=== PATIENT | female | born 1970 ===

== ENCOUNTER 2018-08-12 09:21 | Outpatient (CLI) | payer SELFPAY | END 2018-08-12 09:22 | disposition home or self-care (01) | LOC: C.LAB 09:21 | DX: E11.9 Type 2 diabetes mellitus without complications (principal) ==

== ENCOUNTER 2018-11-11 09:51 | Outpatient (CLI) | payer SELFPAY | END 2018-11-11 09:52 | disposition home or self-care (01) | LOC: C.LAB 09:51 | DX: M06.9 Rheumatoid arthritis, unspecified (principal); N39.0 Urinary tract infection, site not specified ==